=== PATIENT | male | born 2000 | race Caucasian/White ===

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

== ENCOUNTER 2018-01-23 11:24 | Emergency (ER) | payer OTHER ==
[~2018-01-23] VITALS: Ht 172.7 cm; Wt 68.0 kg
[~2018-01-23 11:24] MED LIST changes: +ATIVAN0.5 M1 PO; +BROMFED DM COU118 M1 PO; +CHERATUSSIN AC118 M1 PO; +CLONAZEPAM0.5 M2 PO; +CLONIDINE HCL0.1 MG PO; +DELTASONE20 MG PO; +DOXYCYCLINE HY100 M2 PO; +DOXYCYCLINE HY100 M4 PO; +LITHIUM CARBON300 M4 PO; +LITHIUM CARBON450 M1 PO; +MOBIC15 M1 PO; +PROAIR HFA8.5 GM INH; +SKELAXIN800 M1 PO
[2018-01-23 11:31] VITALS: BP 127/79
--- NOTE | 2018-01-23 11:35 | ED GENERAL ADULT ---
History of Present Illness General Chief Complaint: Upper Respiratory Sx/Fever Stated Complaint: COUGH Source: patient Exam Limitations: no limitations Vital Signs & Intake/Output Vital Signs & Intake/Output Vital Signs Date Time Temp Pulse Resp B/P B/P Pulse O2 O2 Flow FiO2 Mean Ox Delivery Rate 01/23 1136 98 Room Air Room Air 01/23 1131 98.9 110 18 127/79 98 Room Air Allergies Coded Allergies: amoxicillin (From AUGMENTIN) (Severe, RASH AND DIFFICULTY BREATHING 05/28/17) clavulanic acid (From AUGMENTIN) (Severe, RASH AND DIFFICULTY BREATHING 05/28/17 ) erythromycin base (Intermediate, VOMITING AND RASH 05/28/17) sulfisoxazole (Intermediate, VOMITING AND RASH 05/28/17) Penicillins (UNKNOWN PER PT 05/28/17) Reconcile Medications Albuterol Sulfate (Proventil Hfa) 90 MCG HFA.AER.AD 2 PUF INH Q4 BRONCHITIS Aripiprazole (Abilify) 5 MG TABLET 1 TAB PO DAILY MENTAL HEALTH (Reported) Clonazepam 2 MG TABLET 1 TAB PO TIDPRN PRN ANXIETY (Reported) Codeine Phosphate/Guaifenesi (M-Clear Wc Liquid) 6.3 MG-100 MG/5 ML LIQUID 2 TSP PO Q6 PRN COUGH [place] Carbonate ([place] Carbonate ER) 450 MG TABLET.ER 1 TAB PO BID MENTAL HEALTH (Reported) Triage Note: 17M WITH 2 WEEKS OF PRODUCTIVE COUGH, RHINORRHEA, AND DENIES FEVERS/CHILLS. SMOKES 1PPD. HAS TAKEN TESSALON, PREDNISONE 20MG, AND ZPACK WHICH HAS COMPLETED. REPORTS PAIN TO RIB AREA FROM COUGHING, WORSE AT NIGHT. 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 HAS MULTIPLE ANTIBIOTIC ALLERGIES. HAS USED DOXY IN THE PAST WITHOUT ISSUE Triage Nurses Notes Reviewed? yes Onset: Abrupt Duration: day(s): Timing: recent history HPI: 01/23/18 17-year-old man presents with cough productive of yellow sputum, and intermittent difficulty breathing. He denies any chest pain. He says that he's been diagnosed with bronchitis and asthma and is currently on a Z-Obey, and prednisone. Chest x-ray is negative He was given Robitussin-AC and albuterol Past History Travel History Traveled to [place] past 21 day No Medical History Any Pertinent Medical History? 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 No Review of Systems Review of Systems Constitutional: Denies: fever. EENTM: Denies: visual changes. Respiratory: Reports: see HPI, cough. Cardiovascular: Denies: chest pain. GI: Denies: abdominal pain. Genitourinary: Reports: no symptoms. Musculoskeletal: Reports: no symptoms. Skin: Reports: no symptoms. Neurological/Psychological: Reports: no symptoms. Hematologic/Endocrine: Reports: no symptoms. Immunologic/Allergic: Reports: no symptoms. Physical Exam Physical Exam General Appearance: alert, awake, anxious, mild distress Head: atraumatic, normal appearance Eyes: Bilateral: normal appearance, PERRL, EOMI. Ears, Nose, Throat: normal pharynx, normal ENT inspection Neck: normal inspection, supple, full range of motion Respiratory: rhonchi Cardiovascular: regular rate/rhythm Peripheral Pulses: 4+ radial (R), 4+ radial (L) Gastrointestinal: non-tender Back: normal range of motion Extremities: no edema Neurologic/Psych: no motor/sensory deficits, awake, alert, oriented x 3 Skin: intact, normal color, warm/dry Core Measures ACS in differential dx? No CVA/TIA Diagnosis: No Sepsis Present: No Sepsis Focused Exam Completed? No Progress Differential Diagnoses I considered the following diagnoses in my evaluation of the patient: Pneumonia, asthma, COPD, pneumothorax, bronchitis Plan of Care: Follow-up with his doctor this week. Initial ED EKG: none Departure Departure Disposition: HOME OR SELF CARE Condition: Stable Clinical Impression Primary Impression: Bronchitis Referrals: Dominic DAVIS,Tahir Silva (PCP/Family) Departure Forms: Customer Survey General Discharge Information Prescriptions: Current Visit Scripts Albuterol Sulfate (Proventil Hfa) 2 PUF INH Q4 #1 INHAL Codeine Phosphate/Guaifenesi (M-Clear Wc Liquid) 2 TSP PO Q6 PRN COUGH #4 FLA Comments Chest x-ray results shown below PATIENT: US,KOFI PRESENT AGE: 17 PATIENT ACCOUNT NO: [id number] : 98 LOCATION: [facility] ([facility]) ORDERING PHYSICIAN: Josiah Dunn DO SERVICE DATE: 01/23/18-1211 EXAM TYPE: RAD - XRY-CHEST XRAY, TWO VIEWS EXAMINATION: XR CHEST CLINICAL INFORMATION: Cough and wheezing. Rule out pneumonia. COMPARISON: Chest x-ray 03/15/2015 TECHNIQUE: 2 views of the chest were obtained. FINDINGS: Cardiac silhouette is normal in size. Lungs are well aerated. No lobar consolidation. No pleural effusion. No pneumothorax. No acute osseous abnormality. IMPRESSION: No acute cardiopulmonary pathology. DICTATED BY: Toni Zepeda MD DATE/TIME DICTATED:01/23/181257 SALES MGR:THEODORE DATE/TIME TRANSCRIBED:01/23/181257 CONFIDENTIAL, DO NOT COPY WITHOUT APPROPRIATE AUTHORIZATION. <Electronically signed in Other Vendor System> SIGNED BY: Toni Zepeda MD 01/23/18 1304 Patient declined nebulizer treatment. Says he just wants cough medicine. He will follow-up with his doctor this week. Vital signs are stable. Critical Care Note Critical Care Note Critical Care Time: non-applicable
[2018-01-23] MEDS ORDERED: LITHIUM CARBON450 M1 PO (11:47)
[2018-01-23] MEDS ORDERED: ABILIFY5 M1 PO (11:47)
[2018-01-23] MEDS ORDERED: CLONAZEPAM2 M2 PO (11:48)
[2018-01-23] MEDS ORDERED: M-CLEAR WC LIQ473 M1 PO (13:02)
[2018-01-23] MEDS ORDERED: PROVENTIL HFA6.7 GM INH (13:02)
--- NOTE | 2018-01-23 13:04 | RADIOLOGY REPORT ---
EXAMINATION: XR CHEST CLINICAL INFORMATION: Cough and wheezing. Rule out pneumonia. COMPARISON: Chest x-ray 03/15/2015 TECHNIQUE: 2 views of the chest were obtained. FINDINGS: Cardiac silhouette is normal in size. Lungs are well aerated. No lobar consolidation. No pleural effusion. No pneumothorax. No acute osseous abnormality. IMPRESSION: No acute cardiopulmonary pathology.
== END 2018-01-23 13:08 ==
LOC: ERH 11:24
DX: J40 Bronchitis, not specified as acute or chronic (principal); F17.210 Nicotine dependence, cigarettes, uncomplicated
CPT/HCPCS: 71046

== ENCOUNTER 2018-02-02 05:54 | Emergency (ER) | payer OTHER ==
[~2018-02-02] VITALS: Ht 172.7 cm; Wt 68.0 kg
[~2018-02-02 05:54] MED LIST changes: +ABILIFY5 M1 PO; +CLONAZEPAM2 M2 PO; +M-CLEAR WC LIQ473 M1 PO; +PROVENTIL HFA6.7 GM INH
--- NOTE | 2018-02-02 06:03 | ED GENERAL ADULT ---
History of Present Illness General Chief Complaint: General Adult Stated Complaint: INSOMNIA Source: patient, family Exam Limitations: no limitations Vital Signs & Intake/Output Vital Signs & Intake/Output Vital Signs Date Time Temp Pulse Resp B/P B/P Pulse O2 O2 Flow FiO2 Mean Ox Delivery Rate 02/02 0605 97.2 87 16 137/84 99 Room Air Room Air Allergies Coded Allergies: amoxicillin (From AUGMENTIN) (Severe, RASH AND DIFFICULTY BREATHING 05/28/17) clavulanic acid (From AUGMENTIN) (Severe, RASH AND DIFFICULTY BREATHING 05/28/17 ) erythromycin base (Intermediate, VOMITING AND RASH 05/28/17) sulfisoxazole (Intermediate, VOMITING AND RASH 05/28/17) Penicillins (UNKNOWN PER PT 05/28/17) Reconcile Medications Albuterol Sulfate (Proventil Hfa) 90 MCG HFA.AER.AD 2 PUF INH Q4 BRONCHITIS Aripiprazole (Abilify) 5 MG TABLET 1 TAB PO DAILY MENTAL HEALTH (Reported) Clonazepam 2 MG TABLET 1 TAB PO TIDPRN PRN ANXIETY (Reported) Codeine Phosphate/Guaifenesi (M-Clear Wc Liquid) 6.3 MG-100 MG/5 ML LIQUID 2 TSP PO Q6 PRN COUGH [place] Carbonate ([place] Carbonate ER) 450 MG TABLET.ER 1 TAB PO BID MENTAL HEALTH (Reported) Quetiapine Fumarate (Seroquel) 25 MG TABLET 1 TAB PO QPM INSOMN Triage Nurses Notes Reviewed? yes Onset: Gradual Duration: day(s): Timing: recent history Injury Environment: home Severity: mild, moderate Modifying Factors: Improves With: medication. Associated Symptoms: Insomnia HPI: 17-year-old gentleman, history of anxiety and bipolar disorder, presents with insomnia. He states that he usually takes clonazepam 2 mg each evening. He states that many times he needs to take an extra dose. This has left him short for the month. He states that he ran out several days ago. He has found it difficult to sleep. He has taken melatonin and trazodone in the past without effect. He is otherwise well and has no other concerns. Past History Travel History Traveled to [place] past 21 day No Medical History Any Pertinent Medical History? see below for history Neurological: NONE EENT: NONE Cardiovascular: NONE Respiratory: NONE Gastrointestinal: GERD Hepatic: NONE Renal: NONE Musculoskeletal: NONE Psychiatric: anxiety, PTSD Endocrine: NONE Blood Disorders: NONE Cancer(s): NONE LMSW/Reproductive: NONE History of CDIFF: No Surgical History Surgical History: non-contributory Psychosocial History Who do you live with Family What is your primary language Pashto Family History Hx Contributory? No Review of Systems Review of Systems Constitutional: Reports: no symptoms. EENTM: Reports: no symptoms. Respiratory: Reports: no symptoms. Cardiovascular: Reports: no symptoms. GI: Reports: no symptoms. Genitourinary: Reports: no symptoms. Musculoskeletal: Reports: no symptoms. Skin: Reports: no symptoms. Neurological/Psychological: Reports: no symptoms. Hematologic/Endocrine: Reports: no symptoms. Immunologic/Allergic: Reports: no symptoms. All Other Systems: Reviewed and Negative Physical Exam Physical Exam General Appearance: well developed/nourished, no apparent distress Head: atraumatic Eyes: Bilateral: normal appearance. Ears, Nose, Throat: normal pharynx Neck: normal inspection Respiratory: no respiratory distress Back: normal inspection Extremities: normal inspection Neurologic/Psych: no motor/sensory deficits, awake, alert, oriented x 3 Skin: intact, normal color, warm/dry Core Measures ACS in differential dx? No CVA/TIA Diagnosis: No Sepsis Present: No Sepsis Focused Exam Completed? No Progress Differential Diagnoses I considered the following diagnoses in my evaluation of the patient: Insomnia versus anxiety versus other Plan of Care: After much discussion, I prescribed a bridge prescription of low-dose Seroquel. He will follow-up with his outpatient psychiatry team sara. Initial ED EKG: none Departure Departure Disposition: HOME OR SELF CARE Condition: Stable Clinical Impression Primary Impression: Insomnia Referrals: Dominic DAVIS,Tahir Silva (PCP/Family) Departure Forms: Customer Survey General Discharge Information Prescriptions: Current Visit Scripts Quetiapine Fumarate (Seroquel) 1 TAB PO QPM #3 TAB Critical Care Note Critical Care Note Critical Care Time: non-applicable
[2018-02-02 06:05] VITALS: BP 137/84
[2018-02-02] MEDS ORDERED: SEROQUEL25 M1 PO (06:17)
== END 2018-02-02 06:26 ==
LOC: ERH 05:54
DX: G47.00 Insomnia, unspecified (principal)
CPT/HCPCS: 99281

== ENCOUNTER 2018-02-18 05:10 | Emergency (ER) | payer OTHER ==
[~2018-02-18 05:10] MED LIST changes: +KLONOPIN2 M1 PO; +LITHIUM CARBON300 M6 PO; +SEROQUEL25 M1 PO
--- NOTE | 2018-02-18 05:40 | ED GENERAL ADULT ---
History of Present Illness General Chief Complaint: General Adult Stated Complaint: TERRIBLE INSOMNIA PER PT Source: patient Exam Limitations: no limitations Vital Signs & Intake/Output Vital Signs & Intake/Output Vital Signs Date Time Temp Pulse Resp B/P B/P Pulse O2 O2 Flow FiO2 Mean Ox Delivery Rate 02/18 0519 100 Room Air Allergies Coded Allergies: amoxicillin (From AUGMENTIN) (Severe, RASH AND DIFFICULTY BREATHING 02/18/18) clavulanic acid (From AUGMENTIN) (Severe, RASH AND DIFFICULTY BREATHING 02/18/18 ) erythromycin base (Intermediate, VOMITING AND RASH 02/18/18) sulfisoxazole (Intermediate, VOMITING AND RASH 02/18/18) Penicillins (UNKNOWN PER PT 02/18/18) Reconcile Medications Clonazepam (Klonopin) 2 MG TABLET 1 TAB PO QPM PRN INSOMNIA [place] Carbonate ([place] Carbonate ER) 450 MG TABLET.ER 1 TAB PO BID MENTAL HEALTH (Reported) [place] Carbonate ([place] Carbonate ER) 300 MG TABLET.ER 3 TAB PO QPM ANXIETY Quetiapine Fumarate (Seroquel) 25 MG TABLET 1 TAB PO QPM INSOMN Triage Note: TRIAGE: PATIENT TO ER FROM HOME REPORTING "BAD INSOMNIA," SEEN HERE FOR SAME X2 IN LAST TWO WEEKS. DENIES OTHER COMPLAINTS. Triage Nurses Notes Reviewed? 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
== END 2018-02-18 05:30 | disposition admitted as inpatient to this hospital (09) ==
LOC: ERH 05:10
DX: G47.00 Insomnia, unspecified (principal)

== ENCOUNTER 2018-03-06 01:27 | Emergency (ER) | payer OTHER ==
[~2018-03-06 01:27] MED LIST changes: +SEROQUEL50 M1 PO
[2018-03-06 01:49] VITALS: BP 135/62
[2018-03-06] MEDS ORDERED: AMBIEN10 M1 PO (02:26)
--- NOTE | 2018-03-06 02:27 | ED PSYCHIATRIC COMPLAINT ---
History of Present Illness General Chief Complaint: General Adult Stated Complaint: PT C/C "PROLONGED INSOMNIA" Source: patient, old records Exam Limitations: no limitations Vital Signs & Intake/Output Vital Signs & Intake/Output Vital Signs Date Time Temp Pulse Resp B/P B/P Pulse O2 O2 Flow FiO2 Mean Ox Delivery Rate 03/06 0149 97.5 98 18 135/62 99 Room Air 03/06 0148 100 Room Air Allergies Coded Allergies: amoxicillin (From AUGMENTIN) (Severe, RASH AND DIFFICULTY BREATHING 03/06/18) clavulanic acid (From AUGMENTIN) (Severe, RASH AND DIFFICULTY BREATHING 03/06/18 ) erythromycin base (Intermediate, VOMITING AND RASH 03/06/18) sulfisoxazole (Intermediate, VOMITING AND RASH 03/06/18) Penicillins (UNKNOWN PER PT 03/06/18) Reconcile Medications Clonazepam (Klonopin) 2 MG TABLET 1 TAB PO QPM PRN INSOMNIA [place] Carbonate ([place] Carbonate ER) 450 MG TABLET.ER 1 TAB PO BID MENTAL HEALTH (Reported) [place] Carbonate ([place] Carbonate ER) 300 MG TABLET.ER 3 TAB PO QPM ANXIETY Quetiapine Fumarate (Seroquel) 25 MG TABLET 1 TAB PO QPM INSOMN Quetiapine Fumarate (Seroquel) 50 MG TABLET 1 TAB PO QPM PRN insomnia May repeat one tab after 45 minutes if no effect Zolpidem Tartrate (Ambien) 10 MG TABLET 1 TAB PO QPMP PRN insomnia May repeat in 45 minutes if no effect Triage Note: TRIAGE: PATIENT TO ER FROM HOME REPORTING "HAVE INSOMNIA SO THEY PUT ME ON SEROQUEL WHICH WORKS TO GET ME TO SLEEP BUT THEN I WAKE UP EVERY NIGHT ANGRY. STOPPED TAKING IT 3 DAYS AGO. I NEED AN ALTERNATIVE." Triage Nurses Notes Reviewed? yes Onset: Last week Duration: week(s):, constant, continues in ED Timing: recent history Severity: severe Associated Symptoms: insomnia HPI: Several weeks prior to admission patient complains of difficulty sleeping insomnia. He was prescribed Seroquel last week which helped him sleep but he became irritable and angry when he woke. He denies fever chills nausea vomiting diarrhea abdominal pain chest pain shortness breath headache dysuria rash bleeding suicidal ideation homicidal ideation hallucination. Past History Travel History Traveled to [place] past 21 day No Medical History Any Pertinent Medical History? 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 No Review of Systems Review of Systems Constitutional: Reports: no symptoms. EENTM: Reports: no symptoms. Respiratory: Reports: no symptoms. Cardiovascular: Reports: no symptoms. GI: Reports: no symptoms. Genitourinary: Reports: no symptoms. Musculoskeletal: Reports: no symptoms. Skin: Reports: no symptoms. Neurological/Psychological: Reports: see HPI. Hematologic/Endocrine: Reports: no symptoms. Immunologic/Allergic: Reports: no symptoms. All Other Systems: Reviewed and Negative Physical Exam Physical Exam General Appearance: well developed/nourished, alert, awake, anxious, mild distress, thin Head: atraumatic, normal appearance Eyes: Bilateral: normal appearance, PERRL, EOMI. 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 patient not suicidal Progress Differential Diagnosis: drug intoxication, drug withdrawal Plan of Care: Current Medications Sig/Basim Start time Last Medication Dose Stop Time Status Admin Zolpidem Tartrate 10 MG ONCE ONE 03/06 230 UNVr (Ambien) 03/06 231 Departure Departure Time of Disposition: 223 Disposition: HOME OR SELF CARE Condition: Stable Clinical Impression Primary Impression: Insomnia Referrals: Asif DAVIS,Jazmin Alfaro MD,Tahir Silva (PCP/Family) Departure Forms: Customer Survey General Discharge Information Prescriptions: Current Visit Scripts Zolpidem Tartrate (Ambien) 1 TAB PO QPMP PRN insomnia #30 TAB May repeat in 45 minutes if no effect
== END 2018-03-06 02:33 ==
LOC: ERH 01:27
DX: G47.00 Insomnia, unspecified (principal)

== ENCOUNTER 2018-03-22 08:11 | Emergency (ER) | payer OTHER ==
[~2018-03-22 08:11] MED LIST changes: +ABILIFY10 M1 PO; +AMBIEN10 M1 PO
[2018-03-22 08:17] VITALS: BP 131/65
[2018-03-22] MEDS ORDERED: AMBIEN10 M1 PO (09:38)
--- NOTE | 2018-03-22 09:39 | ED GENERAL ADULT ---
History of Present Illness General Chief Complaint: General Adult Stated Complaint: MED REFILL Source: patient Exam Limitations: no limitations Vital Signs & Intake/Output Vital Signs & Intake/Output Vital Signs Date Time Temp Pulse Resp B/P B/P Pulse O2 O2 Flow FiO2 Mean Ox Delivery Rate 03/22 0817 96.5 88 18 131/65 98 Room Air Allergies Coded Allergies: amoxicillin (From AUGMENTIN) (Severe, RASH AND DIFFICULTY BREATHING 03/06/18) clavulanic acid (From AUGMENTIN) (Severe, RASH AND DIFFICULTY BREATHING 03/06/18 ) erythromycin base (Intermediate, VOMITING AND RASH 03/06/18) Penicillins (HIVES, DYSPNEA 03/14/18) Sulfa (Sulfonamide Antibiotics) (VOMITING AND RASH 03/14/18) Reconcile Medications Aripiprazole (Abilify) 10 MG TABLET 1 TAB PO DAILY MENTAL HEALTH (Reported) Brompheniramine/Pseudoephed/Dm (Bromfed Dm Cough Syrup) 2 MG-30 MG-10 MG/5 ML SYRUP 5-10 ML PO Q4-6 PRN PRN Cough Clonazepam (Klonopin) 2 MG TABLET 1 TAB PO QPM PRN INSOMNIA [place] Carbonate ([place] Carbonate ER) 300 MG TABLET.ER 1,200 MG PO QPM MENTAL HEALTH (Reported) Methylprednisolone. (Medrol) 4 MG TAB.DS.PK 1 DP PO AD Cough 6 on day 1 then reduce by one tablet daily until gone Quetiapine Fumarate (Seroquel) 50 MG TABLET 1 TAB PO QPM PRN insomnia May repeat one tab after 45 minutes if no effect Zolpidem Tartrate (Ambien) 10 MG TABLET 1 TAB PO QPMP PRN insomnia Zolpidem Tartrate (Ambien) 10 MG TABLET 1 TAB PO QPMP PRN insomnia May repeat in 45 minutes if no effect Triage Note: PT HERE FOR MED REFILL OF AMBIEN, STATES HE HAS NOT BEEN SLEEPING MUCH WITHOUT IT. Triage Nurses Notes Reviewed? yes HPI: 18-year-old male with insomnia presents emergency department requesting refill on his Ambien 10 mg. He states he does see a primary care outpatient Dr. Turk however he is requesting refill today as he has been unable to sleep. He does report drinking a red bull late last night. Initially during discussion patient reports frustrations with his girlfriend and women in general, however he had declined SI/HI. Throughout the conversation, patient did become more calm. He does report smoking history but declines drug use or alcohol use. Past History Travel History Traveled to [place] past 21 day No Medical History Any Pertinent Medical History? 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 No Review of Systems Review of Systems Constitutional: Reports: see HPI. EENTM: Reports: no symptoms. Respiratory: Reports: no symptoms. Cardiovascular: Reports: no symptoms. GI: Reports: no symptoms. Genitourinary: Reports: no symptoms. Musculoskeletal: Reports: no symptoms. Skin: Reports: no symptoms. Neurological/Psychological: Reports: see HPI. Hematologic/Endocrine: Reports: no symptoms. Immunologic/Allergic: Reports: no symptoms. All Other Systems: Reviewed and Negative Physical Exam Physical Exam General Appearance: well developed/nourished, alert, awake, comfortable Head: atraumatic, normal appearance Eyes: Bilateral: normal appearance. Ears, Nose, Throat: hearing grossly normal Neck: full range of motion Respiratory: normal breath sounds, chest non-tender, no respiratory distress, lungs clear Cardiovascular: regular rate/rhythm, normal peripheral pulses Extremities: normal inspection, normal range of motion Neurologic/Psych: agitated at first but through conversation patient was able to calm down Skin: intact, normal color, warm/dry Core Measures ACS in differential dx? No CVA/TIA Diagnosis: No Sepsis Present: No Sepsis Focused Exam Completed? No Progress Differential Diagnoses I considered the following diagnoses in my evaluation of the patient: [insomnia, sleep deprivation, caffiene intake] Plan of Care: 18-year-old male with insomnia taking Ambien 10 mg daily. Patient was advised good sleep hygiene habits in detail, advised not to drink caffeine or energy drinks, particularly towards the end of the day. Patient was satisfied with being prescribed 5 tablets for Ambien and did state he was going to follow-up with his primary care tomorrow for continued management. Patient was stable at time of discharge. He was advised to follow-up with the emergency department with any new or worsening symptoms. Initial ED EKG: none Departure Departure Disposition: HOME OR SELF CARE Condition: Stable Clinical Impression Primary Impression: Insomnia Qualifiers: Insomnia type: other insomnia Qualified Code: G47.09 - Other insomnia Referrals: Dominic DAVIS,Tahir Silva (PCP/Family) Additional Instructions: Take Ambien for sleeping. Maintain good nighttime routine such as no phone, TV, or computer, or other screens, avoid caffeine later in the day and avoid energy drinks, maintain a cool/dark bedroom, trying to read before bed to relax. Follow-up with Dr. Alfaro tomorrow. Return to the emergency department with any new or worsening symptoms. Departure Forms: Customer Survey General Discharge Information Prescriptions: Current Visit Scripts Zolpidem Tartrate (Ambien) 1 TAB PO QPMP PRN insomnia #5 TAB Critical Care Note Critical Care Note Critical Care Time: non-applicable
[2018-03-23] MEDS ORDERED: HYDROXYZINE HCL50 M1 PO (23:02)
[2018-03-26] MEDS ORDERED: NICOTINE LOZENGE4 MG PO (09:23)
[2018-03-26] MEDS ORDERED: DOXYCYCLINE HY100 M4 PO (09:23)
[2018-03-26] MEDS ORDERED: BROMFED DM COU118 M1 PO (09:24)
== END 2018-03-22 09:40 ==
LOC: ERH 08:11
DX: G47.00 Insomnia, unspecified (principal); Z76.0 Encounter for issue of repeat prescription
CPT/HCPCS: 99281

== ENCOUNTER 2018-03-29 05:42 | Emergency (ER) | payer OTHER ==
[~2018-03-29] VITALS: Ht 172.7 cm; Wt 59.0 kg
[~2018-03-29 05:42] MED LIST changes: +HYDROXYZINE HCL50 M1 PO; +NICOTINE LOZENGE4 MG PO
[2018-03-29 05:56] VITALS: BP 163/68
[2018-03-29] MEDS ORDERED: SEROQUEL50 M1 PO (06:10)
--- NOTE | 2018-03-29 06:12 | ED PSYCHIATRIC COMPLAINT ---
History of Present Illness General Chief Complaint: General Adult Stated Complaint: INSOMNIA Source: patient, old records Exam Limitations: no limitations Vital Signs & Intake/Output Vital Signs & Intake/Output Vital Signs Date Time Temp Pulse Resp B/P B/P Pulse O2 O2 Flow FiO2 Mean Ox Delivery Rate 03/29 0556 97.2 94 18 163/68 99 Room Air Allergies Coded Allergies: amoxicillin (From AUGMENTIN) (Severe, RASH AND DIFFICULTY BREATHING 03/06/18) clavulanic acid (From AUGMENTIN) (Severe, RASH AND DIFFICULTY BREATHING 03/06/18 ) erythromycin base (Intermediate, VOMITING AND RASH 03/06/18) Penicillins (HIVES, DYSPNEA 03/14/18) Sulfa (Sulfonamide Antibiotics) (VOMITING AND RASH 03/14/18) Reconcile Medications Aripiprazole (Abilify) 10 MG TABLET 1 TAB PO DAILY MENTAL HEALTH (Reported) Brompheniramine/Pseudoephed/Dm (Bromfed Dm Cough Syrup) 2 MG-30 MG-10 MG/5 ML SYRUP 5-10 ML PO Q4-6 PRN PRN COUGH Brompheniramine/Pseudoephed/Dm (Bromfed Dm Cough Syrup) 2 MG-30 MG-10 MG/5 ML SYRUP 5-10 ML PO Q4-6 PRN PRN Cough Clonazepam (Klonopin) 2 MG TABLET 1 TAB PO QPM PRN INSOMNIA Doxycycline Hyclate 100 MG TABLET 1 TAB PO BID BRONCHITIS AVOID DIRECT SUNLIGHT EXPOSURE Hydroxyzine Hydrochloride (Atarax) 50 MG TAB 1 TAB PO QPM PRN insomnia [place] Carbonate ([place] Carbonate ER) 300 MG TABLET.ER 1,200 MG PO QPM MENTAL HEALTH (Reported) Methylprednisolone. (Medrol) 4 MG TAB.DS.PK 1 DP PO AD Cough 6 on day 1 then reduce by one tablet daily until gone Nicotine Polacrilex (Nicotine Lozenge) 4 MG LOZENGE 1 JOSEPH PO Q2H PRN NICOTINE CRAVINGS Quetiapine Fumarate (Seroquel) 50 MG TABLET 1 TAB PO QPM PRN insomnia May repeat one tab after 45 minutes if no effect Quetiapine Fumarate (Seroquel) 50 MG TABLET 1 TAB PO QPM PRN insomnia May repeat x 1 after 45 minutes if no effect Zolpidem Tartrate (Ambien) 10 MG TABLET 1 TAB PO QPMP PRN insomnia Zolpidem Tartrate (Ambien) 10 MG TABLET 1 TAB PO QPMP PRN insomnia May repeat in 45 minutes if no effect Triage Note: PT C/O INSOMNIA, STATES HE RAN OUT OF HIS AMBIEN PRESCRIPTION YESTERDAY. STATES COULD NOT SLEEP AT ALL LAST NIGHT Triage Nurses Notes Reviewed? yes Onset: 2 days Duration: day(s):, constant, continues in ED Timing: recent history Severity: severe Associated Symptoms: insomnia HPI: 2 days prior to admission patient complains of recurrent insomnia. He denies fever chills nausea vomiting diarrhea abdominal pain chest pain shortness breath headache dysuria rash bleeding suicidal ideation homicidal ideation hallucination. Past History Travel History Traveled to [place] past 21 day No Medical History Any Pertinent Medical History? 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 No Review of Systems Review of Systems Constitutional: Reports: no symptoms. EENTM: Reports: no symptoms. Respiratory: Reports: no symptoms. Cardiovascular: Reports: no symptoms. GI: Reports: no symptoms. Genitourinary: Reports: no symptoms. Musculoskeletal: Reports: no symptoms. Skin: Reports: no symptoms. Neurological/Psychological: Reports: see HPI. Hematologic/Endocrine: Reports: no symptoms. Immunologic/Allergic: Reports: no symptoms. All Other Systems: Reviewed and Negative Physical Exam Physical Exam General Appearance: well developed/nourished, alert, awake, anxious, mild distress Head: atraumatic, normal appearance Eyes: Bilateral: normal appearance, PERRL, EOMI. 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 patient not suicidal Progress Differential Diagnosis: drug intoxication, drug overdose Plan of Care: Current Medications Sig/Basim Start time Last Medication Dose Stop Time Status Admin Quetiapine Fumarate 50 MG ONCE ONE 03/29 615 UNVr (SEROquel) 03/29 616 Departure Departure Time of Disposition: 608 Disposition: HOME OR SELF CARE Condition: Stable Clinical Impression Primary Impression: Insomnia Referrals: Dominic DAVIS,Tahir Silva (PCP/Family) Departure Forms: Customer Survey General Discharge Information Prescriptions: Current Visit Scripts Quetiapine Fumarate (Seroquel) 1 TAB PO QPM PRN insomnia #30 TAB May repeat x 1 after 45 minutes if no effect
[2018-04-02] MEDS ORDERED: HYDROXYZINE HCL50 M1 PO (15:50)
== END 2018-03-29 06:14 ==
LOC: ERH 05:42
DX: G47.00 Insomnia, unspecified (principal)

== ENCOUNTER 2018-04-01 08:45 | Emergency (ER) | payer OTHER ==
[~2018-04-01] VITALS: Ht 172.7 cm; Wt 59.0 kg
[2018-04-01 08:54] VITALS: BP 163/81
[2018-04-02] MEDS ORDERED: HYDROXYZINE HCL50 M1 PO (15:50)
== END 2018-04-01 09:35 | disposition admitted as inpatient to this hospital (09) ==
LOC: ERH 08:45
DX: F41.9 Anxiety disorder, unspecified (principal)

== ENCOUNTER 2018-05-11 21:00 | Emergency (ER) | payer OTHER ==
[~2018-05-11] VITALS: Ht 172.7 cm; Wt 68.0 kg
[~2018-05-11 21:00] MED LIST changes: +AMBIEN5 M1 PO
[2018-05-11] MEDS ORDERED: VALIUM5 M2 PO (22:21)
--- NOTE | 2018-05-11 22:22 | ED PSYCHIATRIC COMPLAINT ---
History of Present Illness General Chief Complaint: General Adult Stated Complaint: MED PROBLEM; ANXIOUS Source: patient, family, old records Exam Limitations: no limitations Vital Signs & Intake/Output Vital Signs & Intake/Output Vital Signs Date Time Temp Pulse Resp B/P B/P Pulse O2 O2 Flow FiO2 Mean Ox Delivery Rate 05/115 98.7 81 18 120/67 99 Room Air 05/11 2201 97 Room Air 05/11 2134 98.3 83 18 115/66 98 Room Air Allergies Coded Allergies: amoxicillin (From AUGMENTIN) (Severe, RASH AND DIFFICULTY BREATHING 03/06/18) clavulanic acid (From AUGMENTIN) (Severe, RASH AND DIFFICULTY BREATHING 03/06/18 ) erythromycin base (Intermediate, VOMITING AND RASH 03/06/18) Penicillins (HIVES, DYSPNEA 03/14/18) Sulfa (Sulfonamide Antibiotics) (VOMITING AND RASH 03/14/18) Reconcile Medications Aripiprazole (Abilify) 10 MG TABLET 1 TAB PO DAILY MENTAL HEALTH (Reported) Brompheniramine/Pseudoephed/Dm (Bromfed Dm Cough Syrup) 2 MG-30 MG-10 MG/5 ML SYRUP 5-10 ML PO Q4-6 PRN PRN COUGH Brompheniramine/Pseudoephed/Dm (Bromfed Dm Cough Syrup) 2 MG-30 MG-10 MG/5 ML SYRUP 5-10 ML PO Q4-6 PRN PRN Cough Clonazepam (Klonopin) 2 MG TABLET 1 TAB PO QPM PRN INSOMNIA Diazepam (Valium) 5 MG TABLET 1 TAB PO QHS PRN insomnia May repeat x 1 if no effect after 45 minutes Doxycycline Hyclate 100 MG TABLET 1 TAB PO BID BRONCHITIS AVOID DIRECT SUNLIGHT EXPOSURE Hydroxyzine Hydrochloride (Atarax) 50 MG TAB 1 TAB PO QPM PRN insomnia Hydroxyzine Hydrochloride (Atarax) 50 MG TAB 1 TAB PO BID ANXIETY Hydroxyzine Hydrochloride (Atarax) 50 MG TAB 1 TAB PO QPM PRN INSOMNIA [place] Carbonate ([place] Carbonate ER) 300 MG TABLET.ER 1,200 MG PO QPM MENTAL HEALTH (Reported) Methylprednisolone. (Medrol) 4 MG TAB.DS.PK 1 DP PO AD Cough 6 on day 1 then reduce by one tablet daily until gone Nicotine Polacrilex (Nicotine Lozenge) 4 MG LOZENGE 1 JOSEPH PO Q2H PRN NICOTINE CRAVINGS Quetiapine Fumarate (Seroquel) 50 MG TABLET 1 TAB PO QPM INSOMNIA Quetiapine Fumarate (Seroquel) 50 MG TABLET 1 TAB PO QPM PRN insomnia May repeat one tab after 45 minutes if no effect Quetiapine Fumarate (Seroquel) 50 MG TABLET 1 TAB PO QPM PRN insomnia May repeat x 1 after 45 minutes if no effect Zolpidem Tartrate (Ambien) 10 MG TABLET 1 TAB PO QPMP PRN insomnia Zolpidem Tartrate (Ambien) 5 MG TABLET 1 TAB PO QPMP PRN insomnia Zolpidem Tartrate (Ambien) 10 MG TABLET 1 TAB PO QPMP PRN insomnia May repeat in 45 minutes if no effect Triage Note: PT TO ED REQUESTING SOMETHING ELSE TO HELP HIM SLEEP. "THE LAST TIME I WAS HERE THEY GAVE ME SEROQUEL. IT HELPS ME SLEEP BUT IT MAKES ME ANGRY AND ANXIOUS" Triage Nurses Notes Reviewed? yes Onset: Just prior to arrival Duration: day(s):, constant, continues in ED Timing: recent history Severity: moderate Associated Symptoms: insomnia HPI: Patient complains of chronic insomnia. He has been taking Seroquel but has had anger outbursts and mood swings. He denies fever chills nausea vomiting diarrhea abdominal pain chest pain shortness breath headache dysuria rash bleeding suicidal ideation homicidal ideation hallucination. His mother reports she accidentally washed his Klonopin in his pants pocket. Past History Travel History Traveled to [place] past 21 day No Medical History Any Pertinent Medical History? 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 No Review of Systems Review of Systems Constitutional: Reports: no symptoms. EENTM: Reports: no symptoms. Respiratory: Reports: no symptoms. Cardiovascular: Reports: no symptoms. GI: Reports: no symptoms. Genitourinary: Reports: no symptoms. Musculoskeletal: Reports: no symptoms. Skin: Reports: no symptoms. Neurological/Psychological: Reports: see HPI. Hematologic/Endocrine: Reports: no symptoms. Immunologic/Allergic: Reports: no symptoms. All Other Systems: Reviewed and Negative Physical Exam Physical Exam General Appearance: well developed/nourished, mild distress Head: atraumatic Eyes: Bilateral: PERRL, EOMI. 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 patient not suicidal Progress Differential Diagnosis: drug intoxication, drug overdose, drug withdrawal Plan of Care: Current Medications Sig/Basim Start time Last Medication Dose Stop Time Status Admin Diazepam 5 MG ONCE ONE 05/11 2230 UNVr (Valium) 05/11 2231 Departure Departure Time of Disposition: 2219 Disposition: HOME OR SELF CARE Condition: Stable Clinical Impression Primary Impression: Insomnia disorder Referrals: Dominic DAVIS,Tahir Silva (PCP/Family) Departure Forms: Customer Survey General Discharge Information Prescriptions: Current Visit Scripts Diazepam (Valium) 1 TAB PO QHS PRN insomnia #20 TAB Ref 1 May repeat x 1 if no effect after 45 minutes
[2018-05-11 22:35] VITALS: BP 120/67
== END 2018-05-11 22:35 ==
LOC: ERH 21:00
DX: G47.00 Insomnia, unspecified (principal); F41.9 Anxiety disorder, unspecified
CPT/HCPCS: J3360

== ENCOUNTER 2018-06-06 09:18 | Emergency (ER) | payer OTHER ==
[~2018-06-06] VITALS: Ht 172.7 cm; Wt 68.0 kg
[~2018-06-06 09:18] MED LIST changes: +VALIUM5 M2 PO; +VISTARIL25 M1 PO
[2018-06-06 09:30] VITALS: BP 135/86
[2018-06-06] MEDS ORDERED: POLYTRIM EYE DR10 ML OPH (10:00)
[2018-06-06] MEDS ORDERED: VISTARIL50 M1 PO (10:00)
--- NOTE | 2018-06-06 10:00 | ED GENERAL ADULT ---
History of Present Illness General Chief Complaint: General Adult Stated Complaint: MED REFILL Source: patient Exam Limitations: no limitations Vital Signs & Intake/Output Vital Signs & Intake/Output Vital Signs Date Time Temp Pulse Resp B/P B/P Pulse O2 O2 Flow FiO2 Mean Ox Delivery Rate 06/06 0937 98 Room Air 06/06 930 99.9 105 135/86 98 Allergies Coded Allergies: amoxicillin (From AUGMENTIN) (Severe, RASH AND DIFFICULTY BREATHING 03/06/18) clavulanic acid (From AUGMENTIN) (Severe, RASH AND DIFFICULTY BREATHING 03/06/18 ) erythromycin base (Intermediate, VOMITING AND RASH 03/06/18) Penicillins (HIVES, DYSPNEA 03/14/18) Sulfa (Sulfonamide Antibiotics) (VOMITING AND RASH 03/14/18) Reconcile Medications Aripiprazole (Abilify) 10 MG TABLET 1 TAB PO DAILY MENTAL HEALTH (Reported) Brompheniramine/Pseudoephed/Dm (Bromfed Dm Cough Syrup) 2 MG-30 MG-10 MG/5 ML SYRUP 5-10 ML PO Q4-6 PRN PRN COUGH Brompheniramine/Pseudoephed/Dm (Bromfed Dm Cough Syrup) 2 MG-30 MG-10 MG/5 ML SYRUP 5-10 ML PO Q4-6 PRN PRN Cough Clonazepam (Klonopin) 2 MG TABLET 1 TAB PO QPM PRN INSOMNIA Diazepam (Valium) 5 MG TABLET 1 TAB PO QHS PRN insomnia May repeat x 1 if no effect after 45 minutes Doxycycline Hyclate 100 MG TABLET 1 TAB PO BID BRONCHITIS AVOID DIRECT SUNLIGHT EXPOSURE Hydroxyzine Hydrochloride (Atarax) 50 MG TAB 1 TAB PO QPM PRN insomnia Hydroxyzine Hydrochloride (Atarax) 50 MG TAB 1 TAB PO BID ANXIETY Hydroxyzine Hydrochloride (Atarax) 50 MG TAB 1 TAB PO QPM PRN INSOMNIA Hydroxyzine Pamoate (Vistaril) 50 MG CAPSULE 1 CAP PO QPM sleep Hydroxyzine Pamoate (Vistaril) 25 MG CAPSULE 1-2 CAP PO TID PRN ANXIETY [place] Carbonate ([place] Carbonate ER) 300 MG TABLET.ER 1,200 MG PO QPM MENTAL HEALTH (Reported) Methylprednisolone. (Medrol) 4 MG TAB.DS.PK 1 DP PO AD Cough 6 on day 1 then reduce by one tablet daily until gone Nicotine Polacrilex (Nicotine Lozenge) 4 MG LOZENGE 1 JOSEPH PO Q2H PRN NICOTINE CRAVINGS Polytrim (Polytrim Eye Drops) 10,000 UNIT-1 MG/ML DROPS 1 GTT OPH Q6 conjunctivitis Quetiapine Fumarate (Seroquel) 50 MG TABLET 1 TAB PO QPM INSOMNIA Quetiapine Fumarate (Seroquel) 50 MG TABLET 1 TAB PO QPM PRN insomnia May repeat one tab after 45 minutes if no effect Quetiapine Fumarate (Seroquel) 50 MG TABLET 1 TAB PO QPM PRN insomnia May repeat x 1 after 45 minutes if no effect Zolpidem Tartrate (Ambien) 10 MG TABLET 1 TAB PO QPMP PRN insomnia Zolpidem Tartrate (Ambien) 5 MG TABLET 1 TAB PO QPMP PRN insomnia Zolpidem Tartrate (Ambien) 10 MG TABLET 1 TAB PO QPMP PRN insomnia May repeat in 45 minutes if no effect Triage Note: PT TO THE ER FOR MED REFILL OF VISTERAL. PT STATES THAT HE HAS AN INFECTION TO RIGHT EYE AND ITS ALREADY CHECKED OUT AND HE NEEDS ANTIBIOTICS PER PT Gabriella GAYTAN. Triage Nurses Notes Reviewed? yes Onset: Abrupt Duration: day(s): Timing: recent history Injury Environment: home HPI: 18-year-old male comes into the emergency room for further evaluation of refill for his Vistaril and right eye pain and redness. Patient reports that the eye has been red with some discharge and crusting. He was diagnosed with an eye infection but never got the prescription for medication. He denies any vision loss. Denies any trauma to the eye. He also needs a refill on his Vistaril. (Joaquin Mobley) Past History Travel History Traveled to [place] past 21 day No Medical History Any Pertinent Medical History? 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 No (Joaquin Mobley) Review of Systems Review of Systems Constitutional: Reports: no symptoms. EENTM: Reports: see HPI. Respiratory: Reports: no symptoms. Cardiovascular: Reports: no symptoms. GI: Reports: no symptoms. Genitourinary: Reports: no symptoms. Musculoskeletal: Reports: no symptoms. Skin: Reports: no symptoms. Neurological/Psychological: Reports: no symptoms. Hematologic/Endocrine: Reports: no symptoms. Immunologic/Allergic: Reports: no symptoms. All Other Systems: Reviewed and Negative (Joaquin Mobley) Physical Exam Physical Exam General Appearance: well developed/nourished, no apparent distress, alert, awake Head: atraumatic Eyes: Right: other (see below). Bilateral: PERRL, EOMI. Ears, Nose, Throat: normal ENT inspection Neck: normal inspection Respiratory: no respiratory distress Back: normal inspection Extremities: normal inspection Neurologic/Psych: awake, alert Skin: intact Comments: Conjunctiva injected in right eye, Core Measures ACS in differential dx? No CVA/TIA Diagnosis: No Sepsis Present: No Sepsis Focused Exam Completed? No (Joaquin Mobley) Progress Differential Diagnoses I considered the following diagnoses in my evaluation of the patient: Blepharitis, conjunctivitis, anxiety, Plan of Care: 06/06/2018 10:14:19 AM Take medications as prescribed. Return if any concerns worsening symptoms. Follow-up with your PCP. Initial ED EKG: none (Joaquin Mobley) Departure Departure Disposition: HOME OR SELF CARE Condition: Stable Clinical Impression Primary Impression: Conjunctivitis Secondary Impressions: Medication refill Referrals: Dominic DAVIS,Tahir Silva (PCP/Family) Additional Instructions: Use Polytrim drops as prescribed. Take Vistaril as prescribed. Follow-up with your doctor. Return if any concerns worsening symptoms. Please go over all results of today's visit with your primary care doctor. Contact your primary care doctor to let them know you were here in the emergency room. There may be nonspecific findings which may not be related to your visit today here in the emergency room but may require further evaluation and chronic monitoring by your primary care doctor. If you had a laceration today the chance of foreign body always remains. You should follow-up with your primary care doctor for recheck in 3-5 days for a wound check. If you had an x-ray done there is a chance that a fracture could have been missed on initial read and you should follow-up with your primary care doctor for repeat x-rays if symptoms persist. If your blood pressure was elevated here in the emergency room please have rechecked by hyour primary care doctor within the next 48. If you were prescribed a narcotic here in the emergency room or any type of controlled substances you're not allowed to drive while taking this medication or operate any type of heavy machinery. Narcotics can make you feel lightheaded dizziness nausea and can cause constipation. You may need to bead picker a stool softener. Thank you for choosing [facility] emergency room. Please return to the emergency room immediately if you have any other concerns worsening of symptoms. Departure Forms: Customer Survey General Discharge Information Prescriptions: Current Visit Scripts Hydroxyzine Pamoate (Vistaril) 1 CAP PO QPM #30 CAP Polytrim (Polytrim Eye Drops) 1 GTT OPH Q6 #10 ML Comments 06/06/2018 10:15:59 AM Return if any concerns worsening symptoms. Follow-up with PCP. (Joaquin Mobley) PA/PACKAGE PICK UP Co-Sign Statement Statement: ED Attending supervision documentation- [] I saw and evaluated the patient. I have also reviewed all the pertinent lab results and diagnostic results. I agree with the findings and the plan of care as documented in the PA's/PACKAGE PICK UP's documentation. [X] I have reviewed the ED Record and agree with the PA's/PACKAGE PICK UP's documentation. [] Additions or exceptions (if any) to the PAs/PACKAGE PICK UP's note and plan are summarized below: [] (Garry DAVIS,Tino Mcclain) Critical Care Note Critical Care Note Critical Care Time: non-applicable (Joaquin Mobley)
== END 2018-06-06 10:02 ==
LOC: ERH 09:18
DX: H10.9 Unspecified conjunctivitis (principal); Z76.0 Encounter for issue of repeat prescription